=== PATIENT | female | born 1955 | race African-American/Black ===

== ENCOUNTER 2022-11-04 22:49 | Emergency (ER) | payer MEDICARE ==
[~2022-11-04] VITALS: Ht 170.2 cm; Wt 68.1 kg
[~2022-11-04 22:49] MED LIST: AMOXICILLIN/CL875 MG PO; AMOXICILLIN875 MG PO; ANTIPYRINE/BENZ1 SOL AU; AUGMENTIN875TAB PO; BACTRIM DS1 TAB PO; BENZONATATE200 MG PO; CLARITHROMYC500 MG PO; CLARITIN10 M1 PO; DOXYCYCL HYC100 MG PO; FLONASE NASAL50 MCG; MEDDOSEPAK PO; METO50TA52 PO; MULTIVITAMI3 PO; NORVASC PO; SILVADENE1 % EX; ZITHROMAX500 MG PO
[2022-11-04 23:13] VITALS: BP 184/91
[2022-11-04 23:15] VITALS: BP 181/83
[2022-11-04] MEDS ORDERED: COZAAR50 MG PO (23:24)
[2022-11-04 23:31] VITALS: BP 168/102
[2022-11-04 23:45] VITALS: BP 164/95
[2022-11-05] VITALS (7 sets, daily range): BP systolic 123–174; BP diastolic 71–89
[2022-11-05] MEDS ORDERED: VOLTAREN - GENE75 MG PO (00:34)
== END 2022-11-05 01:30 | disposition home or self-care (01) ==
LOC: ED 22:49
DX: S46.911A Strain of unspecified muscle, fascia and tendon at shoulder and upper arm level, right arm, initial encounter (principal); I10 Essential (primary) hypertension; X58.XXXA Exposure to other specified factors, initial encounter